=== PATIENT | male | born 1950 | race Caucasian/White ===

== ENCOUNTER 2017-10-21 07:47 | Inpatient (IN) | payer OTHER ==
[~2017-10-21] VITALS: Ht 152.4 cm; Wt 71.7 kg
--- NOTE | 2017-10-21 07:47 | NUR ---
PT BIBA ALS TO BED 8
[2017-10-21 07:54] VITALS: BP 160/79
--- NOTE | 2017-10-21 08:00 | NUR ---
PATIENT BIBA FOR AMS. PER EMS, PATIENT IS USUALLY VERBAL BUT IS NOT TODAY. PATIENT NOT RESPONDING TO VERBAL CUES ONLY PAINFUL STIMULI. UNABLE TO CONFIRM NAME, , AND WHEREABOUTS. PATIENT HAS NOT VISIBLE WOUNDS. BILATERAL BKA, GRISELDA CATH RIGHT SIDE CHEST, BILATERAL INNER THIGH SCARS, SCAR ALONG MID CHEST AND ALONG RIGHT SIDE RIBS. LUNGS CLEAR BL; HR EVEN AND REGULAR; VSS; PATIENT POSITIONED FOR COMFORT; HOB ELEVATED; BEDRAILS UP X2; BED DOWN. ER MD MADE AWARE OF PT STATUS.
[2017-10-21] MEDS ORDERED: NITR0.4T2 SL (08:25)
[2017-10-21] MEDS ORDERED: SYN.1 PO (08:25)
[2017-10-21] MEDS ORDERED: TAMS0.4C96 PO (08:25)
[2017-10-21] MEDS ORDERED: ASPI81CT89 PO (08:25)
[2017-10-21] MEDS ORDERED: QUET100T PO (08:25)
[2017-10-21] MEDS ORDERED: APIX5TAB PO (08:25)
[2017-10-21] MEDS ORDERED: CLON0.1T42 PO (08:25)
[2017-10-21] MEDS ORDERED: FAMO-90 PO (08:25)
[2017-10-21] MEDS ORDERED: DOCU-299 PO (08:25)
[2017-10-21] MEDS ORDERED: VITD1000 PO (08:25)
[2017-10-21] MEDS ORDERED: GABA300C PO (08:25)
[2017-10-21] MEDS ORDERED: CARV3.12 PO (08:25)
[2017-10-21] MEDS ORDERED: FERR324T11 PO (08:25)
[2017-10-21] MEDS ORDERED: ASCO500T93 PO (08:25)
[2017-10-21] MEDS ORDERED: SLIDE SUBQ (08:25)
[2017-10-21] MEDS ORDERED: HYDR100T79 PO (08:25)
[2017-10-21] MEDS ORDERED: ATOR40TA PO (08:25)
[2017-10-21] MEDS ORDERED: BISA-213 RC (08:25)
[2017-10-21 08:41] LABS: BASOPHILS # (AUTO) 0.1 K/uL (0.00-0.22); BASOPHILS % (AUTO) 0.9 % (0.0-2.0); EOSINOPHILS # (AUTO) 0.5 K/uL (0-0.4); EOSINOPHILS % (AUTO) 6.5 % (0.0-4.0); HEMATOCRIT 35.5 % (36-52); HEMOGLOBIN 11.7 g/dL (12.0-18.0); LYMPHOCYTES # (AUTO) 1.9 K/uL (2.0-11.5); LYMPHOCYTES % (AUTO) 23.5 % (20.5-51.1); MEAN CORPUSCULAR HEMOGLOBIN 29 pg (27-31); MEAN CORPUSCULAR HGB CONC 33 g/dL (33-37); MEAN CORPUSCULAR VOLUME 87.4 fL (80-94); MONOCYTES # (AUTO) 0.8 K/uL (0.8-1.0); MONOCYTES % (AUTO) 10.8 % (1.7-9.3); NEUTROPHILS # (AUTO) 4.6 K/uL (1.8-7.7); NEUTROPHILS % (AUTO) 58.3 % (42.2-75.2); PLATELET COUNT (AUTO) 180 K/uL (140-450); RED BLOOD CELL COUNT(AUTO) 4.06 MIL/uL (4.20-6.10); RED CELL DISTRIBUTION WIDTH 18.7 % (11.6-13.7); WHITE BLOOD COUNT (AUTO) 7.9 K/uL (4.8-10.8)
[2017-10-21 08:45] LABS: BILIRUBIN,URINE NEGATIVE (NEGATIVE); BLOOD, URINE 2+ (NEGATIVE); COLOR,URINE YELLOW (YELLOW); LEUKOCYTE ESTERASE ,URINE NEGATIVE (NEGATIVE); NITRITE, URINE NEGATIVE (NEGATIVE); PH,URINE 5.5 (5.0-9.0); UGLUCOSE TRACE (NEGATIVE)
--- NOTE | 2017-10-21 09:23 | NUR ---
Patient appears to be resting comfortably in bed. Vital Signs within normal limits. Respirations even and unlabored.
[2017-10-21 09:25] LABS: APPEARANCE,URINE SLIGHTLY HAZY (CLEAR)
[2017-10-21 09:26] LABS: ANION GAP 15.5 (8-16); CARBON DIOXIDE 25.6 mmol/L (21-32); CHLORIDE 101 mmol/L (98-107); GFR ARICAN-AMERICAN 13 mL/min (>90); GLUCOSE 135 mg/dL (74-106); POTASSIUM 5.1 mmol/L (3.5-5.1); SODIUM SERUM 137 mmol/L (136-145); UREA NITROGEN, BLOOD 59 mg/dL (7-18)
[2017-10-21 09:26] LABS: RBC,URINE 3-10 (FEW) /HPF (0-5); WBC,URINE 0-5 (RARE) /HPF (0-5)
[2017-10-21 09:27] LABS: BARBITURATE, URINE NEG. ng/ml (NEG <=200); BENZODIAZEPINE, URINE NEG. ng/mL (NEG <=200); CANNABINOID, URINE NEG. ng/mL (NEG <=50); COCAINE, URINE NEG. ng/mL (NEG <=300); OPIATE, URINE NEG. ng/mL (NEG <=2000); PHENCYCLIDINE SCREEN,URINE NEG. ng/mL (NEG <=25)
[2017-10-21 09:29] LABS: CREATININE 5.5 mg/dL (0.7-1.3)
[2017-10-21 09:32] LABS: ALBUMIN 2.7 g/dL (3.4-5.0); ASPARTATE AMINOTRANSFERASE 21 U/L (15-37); TOTAL BILIRUBIN 0.4 mg/dL (0.0-1.0)
[2017-10-21 09:49] LABS: ACETONE, SERUM NEGATIVE (NEGATIVE)
[2017-10-21 09:52] LABS: MAGNESIUM 1.7 mg/dL (1.8-2.4); URIC ACID 3.9 mg/dL (2.6-7.2)
[2017-10-21] MEDS ORDERED: NACL 0.9% 1,000 ML IV SCH (10:21)
[2017-10-21] MEDS ORDERED: ONDANSETRON 4 MG/2 ML VIAL IM/IVP PRN (10:25)
[2017-10-21] MEDS ORDERED: HYDROcodone/APAP 7.5/325 MG 1 TAB PO PRN (10:25)
--- NOTE | 2017-10-21 10:30 | NUR ---
Patient appears to be resting comfortably in bed. Vital Signs within normal limits. Respirations even and unlabored.
--- NOTE | 2017-10-21 11:10 | NUR ---
Patient will be admitted to care of DR. HANKS. Admited to TELE. Will go to room 114. Belongings list completed. Report to MST RN.
[2017-10-21 11:15] VITALS: BP 187/76
[2017-10-21] MEDS ORDERED: DEXTROSE 50% 50 ML SYR IVP PRN (11:40)
[2017-10-21] MEDS ORDERED: NITROGLYCERIN 0.4 MG TAB SL PRN (11:45)
[2017-10-21] MEDS ORDERED: cloNIDine 0.1 MG TAB PO PRN (11:45)
[2017-10-21] MEDS ORDERED: BISACODYL 10 MG SUPP RC PRN (11:45)
--- NOTE | 2017-10-21 12:00 | NUR ---
Admitted from ED, with chief complaint of ALOC. PT IS NOW AAOX2. NO SOB NOTED. NO COMPLAINTS MADE. WITH RT CHEST QIUNTON CATH, CLEAN DRY AND INTACT. CHEST CLEAR, ABDOMEN SOFT, BOWEL SOUNDS PRESENT. WITH SANCHEZ DRAINING SMALL AMOUNTS OF SOFY CLEAR URINE. WITH BILATERAL BKA NOTED, BOTH STUMP HEALED. PT IS 67 y/o ,Male, Cooperative,oriented to call light, bed, phone,television, bathroom, smoking policy,visiting hours, procedures, ID bracelet on. Belongings list checked.
[2017-10-21] MEDS: FERROUS GLUCONATE 324 MG TAB PO SCH ×2 (12:43→18:21)
[2017-10-21] MEDS: hydrALAZINE 25 MG TAB PO SCH ×2 (12:43→18:22)
[2017-10-21 13:25] LABS: PROTHROMBIN TIME 11.6 secs (10.8-13.4)
[2017-10-21 14:01] LABS: FREE T4 (FREE THYROXINE) 0.61 ng/dL (0.76-1.46); PHOSPHORUS 5.3 mg/dL (2.5-4.9); THYROID STIMULATING HORMONE 6.33 uIU/mL (0.34-3.74)
[2017-10-21 16:00] VITALS: BP 152/76
[2017-10-21] MEDS: BLOOD GLUCOSE MONITORING 1 DEV DEV FS SCH ×2 (16:30→21:00)
--- NOTE | 2017-10-21 17:01 | NUR ---
SPOKE WITH SHERI FROM ACUTE [facility]YS[facility] (#[phone]) AND NOTIFIED HER THE HD ORDER FROM DR. TESFAYE FOR TOMORROW.
--- NOTE | 2017-10-21 17:15 | NUR ---
PT ASKED IF I COULD TRACK DOWN HIS WRIST WATCH. NO WRIST WATCH NOTED WHEN PT CAME IN, CALLED ED AND TALKED TO MAGNUS AND STATED PT DID NOT COME WITH ANY VALUABLES. SPOKE WITH PEE FROM [facility] AND STATED PT'S WRIST WATCH IS IN THE FACILITY WITH ALL HIS OTHER BELONGINGS. PT NOTIFIED REGARDING THE ISSUE, VERBALIZED UNDERSTANDING.
[2017-10-21] MEDS: INSULIN LISPRO SLIDING SCALE 100 UNITS/ML VIAL SUBQ PRN (18:22)
--- NOTE | 2017-10-21 19:25 | NUR ---
PT AWAKE, NO SOB NOTED. NO COMPLAINTS MADE. ENDORSED TO NEXT SHIFT NURSE FOR CONTINUITY OF CARE.
--- NOTE | 2017-10-21 19:26 | NUR ---
RECEIVED REPORT FROM DAYSDCFT NURSE AT BEDSIDE FOR CONTINUITY OF CARE. PT AAOX2. PT IV NOTED LFA 20G SALINE LOCK. NO SOB NO S/S OF DISTRESS ON RA. PT HAS SANCHEZ IN PLACE. ALSO HAS MEIlda VILLALOBOS CATH. DIALYSIS SCHEDULED TOMORROW. BED LOWERED CALL LIGHT WITHIN REACH WILL CONTINUE TO MONITOR.
[2017-10-21] MEDS: ATORVASTATIN 20 MG TAB PO SCH (20:42)
[2017-10-21] MEDS: GABAPENTIN 300 MG CAP PO SCH (20:43)
[2017-10-21] MEDS: CARVEDILOL 3.125 MG TAB PO SCH (20:43)
[2017-10-21] MEDS: TAMSULOSIN 0.4 MG CAP PO SCH (20:43)
[2017-10-21] MEDS: DOCUSATE SODIUM 100 MG GELCAP PO SCH (20:43)
[2017-10-21] MEDS: FAMOTIDINE 20 MG TAB PO SCH (20:44)
[2017-10-21] MEDS: QUEtiapine FUMARATE 100 MG TAB PO SCH (20:44)
[2017-10-21] MEDS: ASCORBIC ACID 500 MG TAB PO SCH (20:44)
[2017-10-21] MEDS: APIXABAN 2.5 MG TAB PO SCH (20:54)
[2017-10-21 23:16] VITALS: BP 153/52
[2017-10-22] VITALS: BP 140/40
--- NOTE | 2017-10-22 | NUR ---
PT SLEEPING NO SOB NO S/S OF DISTRESS ON RA. WILL CONTINUE TO MONITOR.
[2017-10-22 04:00] VITALS: BP 123/37
[2017-10-22] MEDS: BLOOD GLUCOSE MONITORING 1 DEV DEV FS SCH ×4 (05:30→20:56)
[2017-10-22] MEDS: LEVOTHYROXINE 0.1 MG TAB PO SCH (05:30)
--- NOTE | 2017-10-22 05:31 | NUR ---
PT REFUSED SYNTHROID MORNING MEDICATION. ATTEMPTED 3X AND PT REFUSED WILL CONTINUE TO MONITOR.
[2017-10-22 06:16] LABS: T4 (THYROXINE) 3.4 ug/dL (4.5-12.0)
[2017-10-22 07:15] LABS: BASOPHILS # (AUTO) 0.1 K/uL (0.00-0.22); BASOPHILS % (AUTO) 0.8 % (0.0-2.0); EOSINOPHILS # (AUTO) 0.5 K/uL (0-0.4); EOSINOPHILS % (AUTO) 5.8 % (0.0-4.0); HEMATOCRIT 33.9 % (36-52); HEMOGLOBIN 11.3 g/dL (12.0-18.0); LYMPHOCYTES % (AUTO) 23.3 % (20.5-51.1); MEAN CORPUSCULAR HEMOGLOBIN 29 pg (27-31); MEAN CORPUSCULAR HGB CONC 34 g/dL (33-37); MEAN CORPUSCULAR VOLUME 86.7 fL (80-94); MONOCYTES # (AUTO) 0.8 K/uL (0.8-1.0); NEUTROPHILS # (AUTO) 5.2 K/uL (1.8-7.7); NEUTROPHILS % (AUTO) 61.1 % (42.2-75.2); PLATELET COUNT (AUTO) 184 K/uL (140-450); RED BLOOD CELL COUNT(AUTO) 3.91 MIL/uL (4.20-6.10); RED CELL DISTRIBUTION WIDTH 18.2 % (11.6-13.7); WHITE BLOOD COUNT (AUTO) 8.4 K/uL (4.8-10.8)
--- NOTE | 2017-10-22 07:28 | NUR ---
ENDORSED REPORT TO DAYSHIFT NURSE AT BEDSIDE FOR CONTINUITY OF CARE.
--- NOTE | 2017-10-22 07:29 | NUR ---
RECEIVED REPORT FROM PRINT WASHER NURSE ILEANA AT BEDSIDE FOR CONTINUITY OF CARE. PT IS AAOX2. INTRODUCED SELF AND UPDATED BOARD. PT AWAKE AND CALM. WITH BILATERAL BKA. POPLITEAL PULSES PALPABLE. R HAND WITH 3RD, 4TH, AND 5TH FINGER AMPUTATION. PT WITH SANCHEZ CATHETER IN PLACE. STRONG URINE ODOR. PT ON RA . O2 SAT 97%. NO COUGH. NO SOB. PT DENIES PAIN. NO SIGNS OF DISTRESS. CALL LIGHT WITHIN REACH. BED IN LOW POSITION, WHEELS LOCKED, BED ALARM ON. WILL CONTINUE TO MONITOR.
[2017-10-22 07:55] LABS: ANION GAP 16.7 (8-16); CARBON DIOXIDE 23.8 mmol/L (21-32); POTASSIUM 5.5 mmol/L (3.5-5.1)
[2017-10-22 08:00] VITALS: BP 136/39
[2017-10-22 08:41] LABS: CREATININE 6.2 mg/dL (0.7-1.3)
--- NOTE | 2017-10-22 08:50 | NUR ---
DR. CORDOBA IN ROOM TO SEE PT. REPORTED BUN 77, CREATININE 6.2 AND K 5.5. TO PLAN FOR DIALYSIS TODAY. CALLED SHERI SAID NURSE IS ON THE WAY TO SEE PT.
[2017-10-22] MEDS: VIT-B COMP/VIT-C/FOLIC ACID 1 TAB PO SCH (08:53)
[2017-10-22] MEDS: DOCUSATE SODIUM 100 MG GELCAP PO SCH ×2 (08:53→20:58)
[2017-10-22] MEDS: VITAMIN D 400 IU TAB PO SCH (08:53)
[2017-10-22] MEDS: ASCORBIC ACID 500 MG TAB PO SCH ×2 (08:53→20:59)
[2017-10-22] MEDS: FERROUS GLUCONATE 324 MG TAB PO SCH ×3 (08:53→16:58)
[2017-10-22] MEDS: ASPIRIN 81 MG TAB.CHEW PO SCH (08:54)
[2017-10-22] MEDS: INSULIN LANTUS 100 UNITS/ML 10 ML VIAL SUBQ SCH (09:00)
[2017-10-22] MEDS: CARVEDILOL 3.125 MG TAB PO SCH ×2 (09:00→20:57)
[2017-10-22] MEDS: hydrALAZINE 25 MG TAB PO SCH ×3 (09:00→16:57)
[2017-10-22] MEDS: APIXABAN 2.5 MG TAB PO SCH ×2 (09:01→21:05)
[2017-10-22 09:19] LABS: PHOSPHORUS 6.5 mg/dL (2.5-4.9)
[2017-10-22 09:26] LABS: CHOL/HDL RATIO 2.9 (1-4.5)
--- NOTE | 2017-10-22 10:42 | NUR ---
PATIENT HAS BEEN SCREENED AND CATEGORIZED MODERATE NUTRITION RISK. PATIENT WILL BE SEEN WITHIN 3-5 DAYS OF ADMISSION. 10/24/17 -10/26/[address] Addendum: 10/22/17 at [address] NOTE [facility] REFERRAL RECEIVED ON 10/22/17 FOR UNCONTROLLED DM. NOTE PATIENT GLUCOSE LEVELS WNL AND PATIENT ON CCHO 60 GM DIET. REFERRAL REASON NOT APPLICABLE AND DOES NOT MEET HIGH NUTRITION RISK CRITERIA PER NUTRITION CARE POLICY. PATIENT WILL BE SEEN AND ASSESSED MODERATE NUTRITION RISK STATED ABOVE [address]
--- NOTE | 2017-10-22 11:08 | NUR ---
PT GETTING DIALYSIS IN ROOM WITH HD RN. TECH IN ROOM FOR ECHO. NO SIGNS OF DISTRESS. PT SITTING UP IN BED WATCHING TV. CALL LIGHT WITHIN REACH. WILL CONTINUE TO MONITOR.
[2017-10-22 12:00] VITALS: BP 119/34
--- NOTE | 2017-10-22 12:00 | NUR ---
PT REFUSED INSULIN COVERAGE. BS WAS 184. PT STATED "I DON'T NEED THAT, YOU ALREADY GAVE IT TO ME." EXPLAINED TO PT PURPOSE OF BS CHECK ACHS AND INSULIN COVERAGE. PT STILL REFUSED. NO OTHER COMPLAINTS AT THIS TIME. WILL CONTINUE TO MONITOR.
[2017-10-22 16:00] VITALS: BP 176/49
[2017-10-22] MEDS: CALCIUM ACETATE 667 MG TAB PO SCH (16:57)
--- NOTE | 2017-10-22 17:00 | NUR ---
CHECKED PT'S BS WAS 210. PT REFUSED INSULIN COVERAGE. STATED "I DON'T NEED THAT." AND PULLED ARM AWAY. EDUCATED PT ON BS CONTROL AND MONITORING. PT STILL REFUSED. NO SIGNS OF DISTRESS. CALL LIGHT WITHIN REACH. WILL CONTINUE TO MONITOR.
--- NOTE | 2017-10-22 19:30 | NUR ---
PT MOVED TO ROOM 118. ENDORSED PT TO INVESTMENT ADVISOR NURSE ISSAC AT BEDSIDE FOR CONTINUITY OF CARE. PT IN STABLE CONDITION.
--- NOTE | 2017-10-22 19:31 | NUR ---
RECEIVED BEDSIDE REPORT FROM DAY SHIFT NURSE FREDA RN, PT STABLE, NO DISTRESS NOTED, IV TO L FA 20G, INTACT, PATENT, SL, PT ON ROOM AIR, NO SOB, SANCHEZ CATH IN PLACE DRAINING CLOUDY YELLOW URINE, INITIAL ASSESSMENT DONE, ALL SAFETY PRECAUTION MET, WILL CONTINUE TO MONITOR.
[2017-10-22 20:00] VITALS: BP 170/50
--- NOTE | 2017-10-22 20:30 | NUR ---
NOTIFIED DR. SHAVER REGARDING PT BP 170/50 HR 90, PT HAS NO S/S OF DISTRESS, NO HEADACHE, STATED UNDERSTANDING, WILL MEDICATE PT WITH BP MEDICATION THAT IS DUE AT 2100. LEFT PT RESTING, NO DISTRESS NOTED, CALL LIGHT WITHIN REACH, WILL CONTINUE TO MONITOR.
[2017-10-22] MEDS: TAMSULOSIN 0.4 MG CAP PO SCH (20:58)
[2017-10-22] MEDS: QUEtiapine FUMARATE 100 MG TAB PO SCH (20:58)
[2017-10-22] MEDS: FAMOTIDINE 20 MG TAB PO SCH (20:59)
[2017-10-22] MEDS: ATORVASTATIN 20 MG TAB PO SCH (20:59)
[2017-10-22] MEDS: GABAPENTIN 300 MG CAP PO SCH (20:59)
--- NOTE | 2017-10-22 20:59 | NUR ---
DUE MEDICATION ADMINISTERED, PT TOLERATED WELL, NO DISTRESS NOTED, CALL LIGHT WITHIN REACH, WILL CONTINUE TO MONITOR.
[2017-10-22] MEDS: INSULIN LISPRO SLIDING SCALE 100 UNITS/ML VIAL SUBQ PRN (21:07)
--- NOTE | 2017-10-22 23:27 | NUR ---
CHECKED ON PT, PT SLEEPING, NO DISTRESS NOTED, V/S TAKEN, BP 120/29, HR 86, CALL LIGHT WITHIN REACH, WILL CONTINUE TO MONTIOR. NOTIFIED DR. SHAVER REGARDING PT DIASTOLIC 29, STATED UNDERSTANDING, NO CHANGE IN ORDERS.
[2017-10-23] VITALS: BP 120/29
[2017-10-23 04:00] VITALS: BP 105/29
--- NOTE | 2017-10-23 04:10 | NUR ---
CHECKED ON PT, PT SLEEPING, NO DISTRESS NOTED, CALL LIGHT WITHIN REACH, WILL CONTINUE TO MONITOR.
[2017-10-23] MEDS: LEVOTHYROXINE 0.1 MG TAB PO SCH (06:04)
[2017-10-23] MEDS: BLOOD GLUCOSE MONITORING 1 DEV DEV FS SCH ×4 (06:07→20:36)
--- NOTE | 2017-10-23 06:07 | NUR ---
DUE MEDICATION ADMINISTERED, PT TOLERATED WELL, NO DISTRESS NOTED, CALL LIGHT WITHIN REACH, WILL CONTINUE TO MONITOR.
--- NOTE | 2017-10-23 07:30 | NUR ---
ENDORSED PT TO DAY SHIFT NURSE HERIBERTO RN, PT STABLE, NO DISTRESS NOTED, CALL LIGHT WITHIN REACH.
--- NOTE | 2017-10-23 07:35 | NUR ---
RECEIVED REPORT FROM WINTER SPORTS MANAGER RN. PATIENT IN STABLE CONDITION, AROUSABLE BY VOICE. AAO X2. BILATERAL BKA AND RIGHT HAND 3RD, 4TH, AND 5TH FINGER AMPUTATED. SKIN INTACT. RIGHT UPPER IJ GRISELDA CATH FOR DIALYSIS ACCESS ON , , SAT. IV SITE PATENT AND RUNNING IVF PER MD ORDERS. F/C IN PLACE, DRAINING URINE. HEART RHYTHM IS REGULAR. LUNGS CTA. ALL SAFETY MEASURES IN PLACE, WILL CONTINUE TO MONITOR.
[2017-10-23 07:40] LABS: BASOPHILS # (AUTO) 0.1 K/uL (0.00-0.22); BASOPHILS % (AUTO) 0.6 % (0.0-2.0); EOSINOPHILS # (AUTO) 0.5 K/uL (0-0.4); HEMATOCRIT 32.5 % (36-52); HEMOGLOBIN 10.8 g/dL (12.0-18.0); LYMPHOCYTES # (AUTO) 2.2 K/uL (2.0-11.5); LYMPHOCYTES % (AUTO) 18.6 % (20.5-51.1); MEAN CORPUSCULAR HEMOGLOBIN 29 pg (27-31); MEAN CORPUSCULAR HGB CONC 33 g/dL (33-37); MEAN CORPUSCULAR VOLUME 86.9 fL (80-94); MONOCYTES # (AUTO) 1.2 K/uL (0.8-1.0); MONOCYTES % (AUTO) 10.5 % (1.7-9.3); NEUTROPHILS # (AUTO) 7.8 K/uL (1.8-7.7); NEUTROPHILS % (AUTO) 66.3 % (42.2-75.2); PLATELET COUNT (AUTO) 187 K/uL (140-450); RED BLOOD CELL COUNT(AUTO) 3.74 MIL/uL (4.20-6.10); RED CELL DISTRIBUTION WIDTH 18.6 % (11.6-13.7); WHITE BLOOD COUNT (AUTO) 11.8 K/uL (4.8-10.8)
[2017-10-23 08:00] VITALS: BP 151/53
[2017-10-23 08:26] LABS: CARBON DIOXIDE 25.5 mmol/L (21-32); POTASSIUM 4.5 mmol/L (3.5-5.1)
[2017-10-23 08:29] LABS: CREATININE 4.8 mg/dL (0.7-1.3)
[2017-10-23 08:36] LABS: MAGNESIUM 1.7 mg/dL (1.8-2.4); PHOSPHORUS 4.2 mg/dL (2.5-4.9)
[2017-10-23] MEDS: ASPIRIN 81 MG TAB.CHEW PO SCH (09:00)
[2017-10-23] MEDS: ASCORBIC ACID 500 MG TAB PO SCH ×2 (09:00→20:25)
[2017-10-23] MEDS: DOCUSATE SODIUM 100 MG GELCAP PO SCH ×2 (09:00→20:22)
[2017-10-23] MEDS: FERROUS GLUCONATE 324 MG TAB PO SCH ×3 (09:01→17:00)
[2017-10-23] MEDS: CARVEDILOL 3.125 MG TAB PO SCH ×2 (09:01→20:23)
[2017-10-23] MEDS: VIT-B COMP/VIT-C/FOLIC ACID 1 TAB PO SCH (09:01)
[2017-10-23] MEDS: hydrALAZINE 25 MG TAB PO SCH ×3 (09:01→17:00)
[2017-10-23] MEDS: CALCIUM ACETATE 667 MG TAB PO SCH ×3 (09:01→17:00)
--- NOTE | 2017-10-23 09:01 | NUR ---
SCHEDULED MEDICATIONS GIVEN PER MD ORDERS. PT DENIES PAIN AND DISCOMFORT. WILL CONTINUE TO MONITOR.
[2017-10-23] MEDS: VITAMIN D 400 IU TAB PO SCH (09:02)
[2017-10-23] MEDS: APIXABAN 2.5 MG TAB PO SCH ×2 (09:12→20:36)
[2017-10-23] MEDS: INSULIN LANTUS 100 UNITS/ML 10 ML VIAL SUBQ SCH (09:20)
[2017-10-23 12:00] VITALS: BP 164/71
[2017-10-23] MEDS ORDERED: MAGNESIUM OXIDE 400 MG TAB PO SCH (12:00)
--- NOTE | 2017-10-23 12:01 | NUR ---
PATIENT REFUSING INSULIN FOR BLOOD SUGAR OF 165.
--- NOTE | 2017-10-23 12:47 | NUR ---
FERROUS GLUCONATE WAS NOT AVAILABLE IN PT CASSETTE WHEN OTHER SCHEDULED MEDS WERE GIVEN. WHEN FERROUS GLUCONATE WAS OFFERED TO THE PATIENT NOW, HE REFUSED SAYING "I DON'T WANT ANY MORE MEDICINE NOW".
--- NOTE | 2017-10-23 14:00 | NUR ---
Ui Software Developer Notes: I call [facility] at and I spoke to Mary about Patient's information. Per Mary Patient has been in their facility since 07/03 and has no issues with his medications and has no special equipment. Patient is on a 7 days skilled bed hold and is welcome to return to their facility when he is ready and clear for discharge. I thanked her for the information and I ended the call.
--- NOTE | 2017-10-23 14:55 | NUR ---
BLOOD NOTED IN SANCHEZ CATHETER. DR. CORDOBA AWARE. WILL REMOVE SANCHEZ CATHETER PER MD ORDERS.
--- NOTE | 2017-10-23 15:20 | NUR ---
SANCHEZ CATHETER REMOVED. PATIENT TOLERATED WELL. NO COMPLAINTS OF PAIN OR DISCOMFORT. NO BLEEDING SEEN. CATHETER TIP IS INTACT.
[2017-10-23 16:00] VITALS: BP 144/42
--- NOTE | 2017-10-23 16:44 | NUR ---
PT IS REFUSING SLIDING SCALE INSULIN COVERAGE FOR BLOOD SUGAR OF 164. PT STATES THAT HIS GOAL FOR BLOOD SUGAR CONTROL IS "BELOW 200". EXPLAINED THE BENEFITS OF TIGHT GLYCEMIC CONTROL AND THE RISKS OF HIGHER BLOOD SUGAR. PT CONTINUES TO REFUSE.
--- NOTE | 2017-10-23 17:17 | NUR ---
PT REFUSING SCHEDULED MEDICATIONS. EXPLAINED THE INDICATIONS OF EACH MEDICATION PRESCRIBED BUT PT CONTINUES TO REFUSE.
--- NOTE | 2017-10-23 19:20 | NUR ---
ENDORSED PLAN OF CARE TO CELL ROOM OPERATOR RN. PT IN STABLE CONDITION
--- NOTE | 2017-10-23 19:26 | NUR ---
REPORT RECEIVED FROM AM NURSE AT BEDSIDE. PT IN STABLE CONDITION. AAOX2 PT SEEMS TO BE CONFUSED ASKING ABOUT A COW. BOARD UPDATED AND INTRODUCED SELF TO PT. FULL CODE, NO KNOWN ALLERGIES, CCHO 60 DIET, STANDARD PRECAUTION. IV SITE PATENT AND INTACT L FA 20G SL. PT IS INCONTINENT. HEMODIALYSIS ON SATURDAY, SATURDAY, AND SATURDAY HAS A RIGHT UPPER IJ GRISELDA CATH. SKIN WARM, DRY, AND INTACT WITH NO OPEN WOUNDS. BED LOCKED IN LOW POSITION. CALL MORALES WITHIN REACH.
[2017-10-23 20:00] VITALS: BP 147/39
--- NOTE | 2017-10-23 20:20 | NUR ---
PM MEDS GIVEN. PT TOLERATED WELL. BS 123. NO INSULIN COVERAGE NEEDED. PT TURNED AND REPOSITIONED IN BED.
[2017-10-23] MEDS: TAMSULOSIN 0.4 MG CAP PO SCH (20:23)
[2017-10-23] MEDS: GABAPENTIN 300 MG CAP PO SCH (20:23)
[2017-10-23] MEDS: ATORVASTATIN 20 MG TAB PO SCH (20:23)
[2017-10-23] MEDS: FAMOTIDINE 20 MG TAB PO SCH (20:23)
[2017-10-23] MEDS: QUEtiapine FUMARATE 100 MG TAB PO SCH (20:25)
--- NOTE | 2017-10-23 23:30 | NUR ---
VS TAKEN. PT IN STABLE CONDITION. NO S/S OF DISTRESS NOTED.
[2017-10-24] VITALS: BP 150/30
--- NOTE | 2017-10-24 03:30 | NUR ---
VS TAKEN AND ARE STABLE. NO S/S OF DISTRESS. PT SLEEPING SUPINE. WILL CONTINUE TO MONITOR.
[2017-10-24 04:00] VITALS: BP 148/37
--- NOTE | 2017-10-24 05:10 | NUR ---
RECD. RESTING IN BED, SLEEPING BUT WAKES UP WHEN NAME CALLED, A/OX1. RESPIRATION EVEN AND UNLABORED. GRISELDA CATH AT THE LEFT UPPER CHEST, WITH DRESSING, DRY AND INTACT. IV OF NS AT 60 ML/HR INFUSING, LEFT FOREARM G20. RIGHT 4TH AND 5TH FINGER AMPUTATED, MIDDLE FINGER COVERED WITH DRESSING, DRY AND INTACT. BILATERAL BKA. SAFETY MEASURES ENFORCED. PLAN OF CARE FOR THE SHIFT DISCUSSED. NEEDS REINFORCEMENT. NO APPEARANCE OF PAIN NOTED, 0/10.
[2017-10-24] MEDS: LEVOTHYROXINE 0.1 MG TAB PO SCH ×2 (05:35→05:38)
--- NOTE | 2017-10-24 05:35 | NUR ---
BS 93. NO INSULIN COVERAGE NEEDED. PT REFUSED SYNTHROID.
[2017-10-24] MEDS: BLOOD GLUCOSE MONITORING 1 DEV DEV FS SCH ×4 (05:37→21:42)
--- NOTE | 2017-10-24 07:08 | NUR ---
REPORT GIVEN TO AM NURSE AT BEDSIDE. PT IN STABLE CONDITION.
--- NOTE | 2017-10-24 07:20 | NUR ---
RECEIVED PT REPORT AT BEDSIDE FROM EFFERVESCENT SALTS COMPOUNDER RN. PT IS SLEEPING, AROUSED TO NAME, OX1, APPEARS TO BE LETHARGIC. NO S/S OF ACUTE DISTRESS ON ROOM AIR. IV SITE NOTED TO L FA 20G, PATENT AND INTACT, SL. PT IS INCONTINENT. HEMODIALYSIS SCHEDULED FOR TODAY, RIGHT UPPER IJ GRISELDA CATH NOTED. BED IN LOWEST POSITION. CALL LIGHT WITHIN REACH. WILL CONTINUE O MONITOR.
[2017-10-24 07:23] LABS: BASOPHILS # (AUTO) 0.1 K/uL (0.00-0.22); BASOPHILS % (AUTO) 0.4 % (0.0-2.0); EOSINOPHILS # (AUTO) 0.3 K/uL (0-0.4); EOSINOPHILS % (AUTO) 2.2 % (0.0-4.0); HEMATOCRIT 34.2 % (36-52); HEMOGLOBIN 11.2 g/dL (12.0-18.0); LYMPHOCYTES % (AUTO) 14.8 % (20.5-51.1); MEAN CORPUSCULAR HEMOGLOBIN 28 pg (27-31); MEAN CORPUSCULAR HGB CONC 33 g/dL (33-37); MEAN CORPUSCULAR VOLUME 86.8 fL (80-94); MONOCYTES # (AUTO) 1.4 K/uL (0.8-1.0); MONOCYTES % (AUTO) 10.8 % (1.7-9.3); NEUTROPHILS # (AUTO) 9.5 K/uL (1.8-7.7); NEUTROPHILS % (AUTO) 71.8 % (42.2-75.2); PLATELET COUNT (AUTO) 195 K/uL (140-450); RED BLOOD CELL COUNT(AUTO) 3.94 MIL/uL (4.20-6.10); RED CELL DISTRIBUTION WIDTH 18.8 % (11.6-13.7); WHITE BLOOD COUNT (AUTO) 13.3 K/uL (4.8-10.8)
[2017-10-24 08:00] VITALS: BP 133/53
[2017-10-24 08:19] LABS: CARBON DIOXIDE 24.1 mmol/L (21-32); POTASSIUM 5.1 mmol/L (3.5-5.1)
[2017-10-24 08:20] LABS: MAGNESIUM 1.8 mg/dL (1.8-2.4); PHOSPHORUS 4.4 mg/dL (2.5-4.9)
[2017-10-24] MEDS: CALCIUM ACETATE 667 MG TAB PO SCH ×3 (08:43→16:59)
[2017-10-24 08:46] LABS: CREATININE 6.1 mg/dL (0.7-1.3)
[2017-10-24] MEDS: INSULIN LANTUS 100 UNITS/ML 10 ML VIAL SUBQ SCH (09:00)
[2017-10-24] MEDS: hydrALAZINE 25 MG TAB PO SCH ×3 (09:00→17:00)
[2017-10-24] MEDS: CARVEDILOL 3.125 MG TAB PO SCH ×2 (09:00→21:33)
[2017-10-24] MEDS ORDERED: EPOETIN ALFA 10,000 UNITS/ML VIAL SUBQ SCH (09:00)
[2017-10-24] MEDS: DOCUSATE SODIUM 100 MG GELCAP PO SCH ×2 (09:10→21:31)
[2017-10-24] MEDS: FERROUS GLUCONATE 324 MG TAB PO SCH ×3 (09:10→16:59)
[2017-10-24] MEDS: ASCORBIC ACID 500 MG TAB PO SCH ×2 (09:10→21:31)
[2017-10-24] MEDS: VIT-B COMP/VIT-C/FOLIC ACID 1 TAB PO SCH (09:10)
[2017-10-24] MEDS: ASPIRIN 81 MG TAB.CHEW PO SCH (09:10)
[2017-10-24] MEDS: VITAMIN D 400 IU TAB PO SCH (09:11)
[2017-10-24] MEDS: APIXABAN 2.5 MG TAB PO SCH ×2 (09:20→22:03)
--- NOTE | 2017-10-24 09:25 | NUR ---
LANTUS NOT GIVEN BECAUSE PT REFUSED TO EAT BREAKFAST. BLOOD GLUCOSE 102.
--- NOTE | 2017-10-24 09:27 | NUR ---
2 VIALS OF 5000 UNITS HEPARIN GIVEN TO DIALYSIS NURSE TO BE ADMINISTERED FOR DIALYSIS.
--- NOTE | 2017-10-24 12:20 | NUR ---
PT FINISHED DIALYSIS, PT IS NOW MORE AWAKE. PT IS EATING BY HIMSELF, MINIMAL ASSISTANCE PROVIDED.
--- NOTE | 2017-10-24 12:40 | NUR ---
PT WAS CLEANED, BED LINEN CHANGED, BLOODY URINE NOTED. ALSO NOTED YELLOW DISCHARGE WITH FOUL ODOR FROM RIGHT MIDDLE FINGER CRACKED SCAB. PT STATED THE FINGER WAS AMPUTATED 10 MONTHS AGO AND HE DOES NOT REMEMBER WHICH HOSP WAS THE PROCEDURE DONE. REPORTED FINDINGS TO DR CORDOBA. WOUND PIC TAKEN. CULTURE SWAB DONE.
--- NOTE | 2017-10-24 14:49 | NUR ---
REASON FOR EVALUATION: CHANGE OF SKIN CONDITION TO RIGHT HAND AND LOW MIRTA SCALE SKIN ASSESSMENT DONE WITH PRIMARY RN WITH THIS 67 Y/O MALE PT ADMITTED FROM [facility] TO [facility] WITH INITIAL DX OF ALOC. PAST MEDICAL HX INCLUDES HTN, DM, ESRD ON HD. ALL ABOVE INFORMATION OBTAINED FROM ADMISSION H&P. PT HAS HX OF BLE BKA, AND RIGHT HAND PARTIAL AMPUTATION WITH ONLY RIGHT THUMB AND INDEX FINGER REMAIN AND GOOD AROM. PT IS AAX3. PT IS RECEIVE HD AT BED SIDE. PLAN OF CARE DISCUSS WITH PRIMARY RN AND PT. PT VERBALIZES UNDERSTAND. INTEGUMENTARY: -BILATERAL BKA HEALED STUMPS. -GRISELDA CATH RIGHT SIDE CHEST -MULTIPLE HEALED SCARS TO BILATERAL INNER THIGH, MID CHEST AND RIGHT LATERAL CHEST. -S/P RIGHT HAND PARTIAL AMPUTATION SURGICAL WOUND (NO 3RD, 4TH AND 5TH FINGERS OBSERVED) , MULTIPLE BROWN SCABS WITH LARGEST TO OLD 3RD FINGER POSITION, 2X2CM, CRACKED LESION SCAB, SMALL AMOUNT PURULENT DRAINAGE WITH MILD ODOR. AGUSTO-WOUND SKIN INTACT, SWELLING WITH DARKER BROWN PIGMENTATION, PT. HAS SENSATION MILD PAIN WHEN TOUCHED. RECOMMENDATIONS: -X-RAY OR BONE SCAN TO RIGHT HAND -WOUND CULTURE -CLEANSE S/P SURGICAL WOUND TO RIGHT HAND WITH NS. PAT DRY, APPLY THERAHONEY GEL, COVER WITH NON-ADHESIVE DRY DRESSING QD AND PRN IF SOILING. -OFFLOAD BILATERAL HEELS BY PLACING PILLOWS UNDER CALVES UNLESS OTHERWISE CONTRAINDICATED -PRESSURE REDISTRIBUTION SURFACE THERAPY -TURN AND REPOSITION Q2H, OFFLOAD SACRALCOCCYX BY TURNING RIGHT AND LEFT -CONTINUE TO FOLLOW RD RECOMMENDATIONS ALL ABOVE RECOMMENDATIONS DISCUSSED WITH PRIMARY RN AND DR. CORDOBA WILL FOLLOW UP PT Q7-10 DAYS. PLEASE CONTACT WOUND CARE NURSE FOR ANY QUESTION AND CHANGE OF WOUND CONDITION.
[2017-10-24 16:00] VITALS: BP 144/57
[2017-10-24] MEDS: THERAHONEY WOUND DRESSING TP SCH (16:00)
--- NOTE | 2017-10-24 16:00 | NUR ---
RINSED WOUND ON RIGHT MID FINGER WITH NS, PATTED DRY. SCAB IS PARTIALLY OPEN. APPLIED THERAHONEY, ADAPTIC DRESSING AND COVERED WITH COMPOSITE DRESSING.
--- NOTE | 2017-10-24 16:10 | NUR ---
PT WAS STRAIGHT CATHED, URINE SENT TO LAB.
--- NOTE | 2017-10-24 16:30 | NUR ---
VITALS TAKEN, TEMP 102.0, REPORTED TO DR CORDOBA. WILL ADMINISTER TYLENOL PRN ORDER.
--- NOTE | 2017-10-24 16:55 | NUR ---
TYLENOL GIVEN, ICE PACK APPLIED TO THE BACK OF THE NECK.
[2017-10-24] MEDS: ACETAMINOPHEN 325 MG TAB PO PRN (16:57)
[2017-10-24] MEDS: INSULIN LISPRO SLIDING SCALE 100 UNITS/ML VIAL SUBQ PRN (17:09)
--- NOTE | 2017-10-24 19:25 | NUR ---
REPORT GIVEN TO LEATHER STRETCHER RN. PT IN STABLE CONDITION.
[2017-10-24 20:00] VITALS: BP 135/58
--- NOTE | 2017-10-24 20:00 | NUR ---
Patient's Plan of Care was discussed and reviewed with SUPERVISOR POULTRY PROCESSING: MADDIE HOOVER
[2017-10-24] MEDS: CLINDAMYCIN PHOS 600MG/D5W PM 50 ML IV SCH (21:02)
--- NOTE | 2017-10-24 21:04 | NUR ---
IV ANB STARTED. PT TOLERATING WELL. WILL CONTINUE TO MONITOR.
[2017-10-24] MEDS: QUEtiapine FUMARATE 100 MG TAB PO SCH (21:31)
[2017-10-24] MEDS: TAMSULOSIN 0.4 MG CAP PO SCH (21:32)
[2017-10-24] MEDS: ATORVASTATIN 20 MG TAB PO SCH (21:32)
[2017-10-24] MEDS: GABAPENTIN 300 MG CAP PO SCH (21:32)
[2017-10-24] MEDS: FAMOTIDINE 20 MG TAB PO SCH (21:33)
--- NOTE | 2017-10-24 21:33 | NUR ---
DUE PO MEDICATIONS GIVEN, TOLERATED WELL.
--- NOTE | 2017-10-25 | NUR ---
SLEEPING COMFORTABLY, NO APPEARANCE OF PAIN NOTED.
[2017-10-25] MEDS: CLINDAMYCIN PHOS 600MG/D5W PM 50 ML IV SCH (04:24)
--- NOTE | 2017-10-25 06:00 | NUR ---
STILL SLEEPING COMFORTABLY.
[2017-10-25] MEDS: LEVOTHYROXINE 0.1 MG TAB PO SCH (06:27)
[2017-10-25] MEDS: BLOOD GLUCOSE MONITORING 1 DEV DEV FS SCH ×4 (06:29→21:16)
[2017-10-25] MEDS: INSULIN LISPRO SLIDING SCALE 100 UNITS/ML VIAL SUBQ PRN (06:33)
--- NOTE | 2017-10-25 07:05 | NUR ---
ABLE TO SLEEP WELL. CONDITION REMAIN STABLE. ENDORSED TO AM NURSE FOR CONTINUITY OF CARE.
[2017-10-25 07:20] LABS: HEMATOCRIT 32.4 % (36-52); HEMOGLOBIN 10.8 g/dL (12.0-18.0); MEAN CORPUSCULAR HEMOGLOBIN 29 pg (27-31); MEAN CORPUSCULAR HGB CONC 33 g/dL (33-37); MEAN CORPUSCULAR VOLUME 86.1 fL (80-94); PLATELET COUNT (AUTO) 198 K/uL (140-450); RED BLOOD CELL COUNT(AUTO) 3.77 MIL/uL (4.20-6.10); RED CELL DISTRIBUTION WIDTH 18.6 % (11.6-13.7); WHITE BLOOD COUNT (AUTO) 16.3 K/uL (4.8-10.8)
--- NOTE | 2017-10-25 07:30 | NUR ---
RECEIVED PT REPORT AT BEDSIDE FROM CLINICAL REHABILITATION AIDE NURSE. PT IS SLEEPING, AROUSED TO NAME, OX1, APPEARS TO BE DROWSY. NO S/S OF ACUTE DISTRESS ON ROOM AIR. IV SITE NOTED TO L FA 20G, PATENT AND INTACT, TKO. PT IS INCONTINENT. RIGHT UPPER IJ GRISELDA CATH NOTED. BED IN LOWEST POSITION. CALL LIGHT WITHIN REACH. WILL CONTINUE O MONITOR.
[2017-10-25 07:40] LABS: LYMPHOCYTES % (MANUAL) 10 % (20-46); MONOCYTES % (MANUAL) 7 % (5-12)
[2017-10-25] MEDS ORDERED: VANCOMYCIN PER PHARMACY MC PRN (07:45)
[2017-10-25 07:46] LABS: ANION GAP 13.8 (8-16); CARBON DIOXIDE 23.6 mmol/L (21-32); POTASSIUM 4.4 mmol/L (3.5-5.1)
[2017-10-25 07:50] LABS: CREATININE 5.1 mg/dL (0.7-1.3)
[2017-10-25 08:00] VITALS: BP 123/44
[2017-10-25] MEDS: FERROUS GLUCONATE 324 MG TAB PO SCH ×3 (08:22→17:29)
[2017-10-25] MEDS: CALCIUM ACETATE 667 MG TAB PO SCH ×3 (08:22→17:29)
[2017-10-25] MEDS: VIT-B COMP/VIT-C/FOLIC ACID 1 TAB PO SCH (08:23)
[2017-10-25] MEDS: ASCORBIC ACID 500 MG TAB PO SCH ×2 (08:23→21:16)
[2017-10-25] MEDS: DOCUSATE SODIUM 100 MG GELCAP PO SCH ×2 (08:23→21:17)
[2017-10-25] MEDS: ASPIRIN 81 MG TAB.CHEW PO SCH (08:23)
[2017-10-25] MEDS: VITAMIN D 400 IU TAB PO SCH (08:23)
[2017-10-25] MEDS: CARVEDILOL 3.125 MG TAB PO SCH ×2 (08:24→21:16)
[2017-10-25] MEDS: hydrALAZINE 25 MG TAB PO SCH ×3 (08:25→17:00)
[2017-10-25] MEDS: INSULIN LANTUS 100 UNITS/ML 10 ML VIAL SUBQ SCH (08:39)
[2017-10-25] MEDS: APIXABAN 2.5 MG TAB PO SCH ×2 (08:39→21:23)
--- NOTE | 2017-10-25 08:59 | NUR ---
CM NOTE PATIENT HAS SECONDARY IEHP. PER IEHP DARRELL PONCE FOR [facility] AUTH# [id number]
[2017-10-25] MEDS ORDERED: VANCOMYCIN 1GM/DEXT 5% PREMIX 200 ML IV SCH (09:00)
--- NOTE | 2017-10-25 12:20 | NUR ---
BP 130/44 HR 79. APRESOLINE GIVEN SCHEDULED.
--- NOTE | 2017-10-25 12:45 | NUR ---
TEMP 99.8 TEMPORAL, TYLENOL GIVEN.
[2017-10-25] MEDS: ACETAMINOPHEN 325 MG TAB PO PRN (12:47)
--- NOTE | 2017-10-25 13:10 | NUR ---
RIGHT FINGER WOUND DRESSING CHANGED. RINSED WITH NS, PATTED DRY, APPLIED THERAHONEY AND ADAPTIC, COVERED WITH COMPOSITE DRESSING.
[2017-10-25] MEDS: THERAHONEY WOUND DRESSING TP SCH (13:22)
[2017-10-25 16:00] VITALS: BP 107/36
[2017-10-25] MEDS ORDERED: metFORMIN 500 MG TAB PO SCH (17:00)
--- NOTE | 2017-10-25 17:05 | NUR ---
TOLD DIALYSIS NURSE NÉSTOR THAT [facility] HAS DIALYSIS ORDER TOMORROW. NÉSTOR CONTACTED SHERI AND SAID SHERI IS ALREADY AWARE.
--- NOTE | 2017-10-25 19:18 | NUR ---
REPORT GIVEN TO LINUX DEVELOPER RN. PT IN STABLE CONDITION.
--- NOTE | 2017-10-25 19:19 | NUR ---
REPORT RECEIVED FROM AM NURSE. PT IN STABLE CONDITION. AAOX2. BOARD UPDATED AND INTRODUCED SELF TO PT. IV SITE L FA 22G RUNNING NS TKO. PT HAS BILATERAL BKA AND RIGHT 3RD 4TH AND 5TH FINGERS AMPUTATED. SKIN WARM, DRY, AND NOT INTACT DUE TO AN INFECTION ON THE 3RD FINGER. BED LOCKED IN LOW POSITION. CALL MORALES WITHIN REACH.
--- NOTE | 2017-10-25 21:15 | NUR ---
PM MEDS GIVEN. PT TOLERATED WELL. BS 137. NO INSULIN COVERAGE NEEDED.
[2017-10-25] MEDS: TAMSULOSIN 0.4 MG CAP PO SCH (21:16)
[2017-10-25] MEDS: ATORVASTATIN 20 MG TAB PO SCH (21:16)
[2017-10-25] MEDS: FAMOTIDINE 20 MG TAB PO SCH (21:17)
[2017-10-25] MEDS: GABAPENTIN 300 MG CAP PO SCH (21:17)
--- NOTE | 2017-10-25 23:30 | NUR ---
PT VS STABLE. NO S/S OF DISTRESS.
[2017-10-26] VITALS: BP 143/44
--- NOTE | 2017-10-26 01:00 | NUR ---
CHECKED PT DRESSING. DRY AND INTACT. NO DRESSING CHANGE.
--- NOTE | 2017-10-26 04:00 | NUR ---
PT SLEEPING COMFORTABLY. SLEEPING BUT AROUSABLE. WILL CONTINUE TO MONITOR.
--- NOTE | 2017-10-26 05:40 | NUR ---
SYNTHROID AND GLUCOTROL GIVEN. PT TOLERATED WELL. BS 109. NO INSULIN COVERAGE NEEDED.
[2017-10-26] MEDS: LEVOTHYROXINE 0.1 MG TAB PO SCH (05:42)
[2017-10-26] MEDS: glipiZIDE 5 MG TAB PO SCH (05:43)
[2017-10-26] MEDS: BLOOD GLUCOSE MONITORING 1 DEV DEV FS SCH ×4 (05:44→21:18)
--- NOTE | 2017-10-26 07:05 | NUR ---
REPORT GIVEN TO AM NURSE AT BEDSIDE. PT IN STABLE CONDITION.
--- NOTE | 2017-10-26 07:05 | NUR ---
RECEIVED PT FROM RUBBER TIRE AND TUBES SUPERVISOR CELESTINE BETANCOURT, PT IN BED AWAKE, V/S TAKEN ALL WITHIN PTS BASELINE, DIALYSIS NURSE ON UNIT, ORDER FOR DIALYSIS AND CURRENT LABS PRINTED AND IN CHART. RIGHT SUBCLAVIAN GRISELDA CATH DRESSING INTACT. L FA 20 G DRESSING INTACT, PATENT. PTS BED IN LOWEST POSITION, WHEN ASKED IF IN PAIN PT DID NOT RESPOND. NO SIGNS OF ACUTE DISTRESS, UPDATED BOARD EXPLAINED PLAN OF CARE. WILL CONTINUE TO MONITOR.
[2017-10-26 07:15] LABS: BASOPHILS # (AUTO) 0.1 K/uL (0.00-0.22); BASOPHILS % (AUTO) 0.5 % (0.0-2.0); EOSINOPHILS # (AUTO) 0.2 K/uL (0-0.4); EOSINOPHILS % (AUTO) 1.6 % (0.0-4.0); HEMATOCRIT 30.1 % (36-52); LYMPHOCYTES # (AUTO) 1.6 K/uL (2.0-11.5); LYMPHOCYTES % (AUTO) 11.5 % (20.5-51.1); MEAN CORPUSCULAR HEMOGLOBIN 29 pg (27-31); MEAN CORPUSCULAR HGB CONC 33 g/dL (33-37); MONOCYTES # (AUTO) 1.5 K/uL (0.8-1.0); MONOCYTES % (AUTO) 11.1 % (1.7-9.3); NEUTROPHILS # (AUTO) 10.4 K/uL (1.8-7.7); NEUTROPHILS % (AUTO) 75.3 % (42.2-75.2); PLATELET COUNT (AUTO) 210 K/uL (140-450); RED BLOOD CELL COUNT(AUTO) 3.47 MIL/uL (4.20-6.10); RED CELL DISTRIBUTION WIDTH 18.5 % (11.6-13.7); WHITE BLOOD COUNT (AUTO) 13.9 K/uL (4.8-10.8)
[2017-10-26 07:26] LABS: ANION GAP 13.5 (8-16); CARBON DIOXIDE 22.4 mmol/L (21-32); POTASSIUM 4.9 mmol/L (3.5-5.1)
[2017-10-26 07:39] LABS: CREATININE 6.4 mg/dL (0.7-1.3)
--- NOTE | 2017-10-26 07:50 | NUR ---
RECEIVED CALL FROM LAB, SPOKE WITH TONYA, BUN 68, CREATININE 6.4. PT GETTING DIALYSIS TODAY. PAGED DR CORDOBA.
[2017-10-26 07:51] LABS: MAGNESIUM 1.9 mg/dL (1.8-2.4); PHOSPHORUS 3.9 mg/dL (2.5-4.9)
[2017-10-26 08:00] VITALS: BP 135/60
[2017-10-26] MEDS: hydrALAZINE 25 MG TAB PO SCH ×3 (08:02→17:00)
[2017-10-26] MEDS: CARVEDILOL 3.125 MG TAB PO SCH ×2 (08:03→21:19)
[2017-10-26] MEDS: VITAMIN D 400 IU TAB PO SCH (08:42)
[2017-10-26] MEDS: DOCUSATE SODIUM 100 MG GELCAP PO SCH ×2 (08:43→21:19)
[2017-10-26] MEDS: VIT-B COMP/VIT-C/FOLIC ACID 1 TAB PO SCH (08:43)
[2017-10-26] MEDS: ASPIRIN 81 MG TAB.CHEW PO SCH (08:44)
[2017-10-26] MEDS: FERROUS GLUCONATE 324 MG TAB PO SCH ×4 (08:44→17:00)
[2017-10-26] MEDS: CALCIUM ACETATE 667 MG TAB PO SCH ×3 (08:44→17:00)
[2017-10-26] MEDS: ASCORBIC ACID 500 MG TAB PO SCH ×2 (08:44→21:20)
[2017-10-26] MEDS: INSULIN LANTUS 100 UNITS/ML 10 ML VIAL SUBQ SCH (08:48)
[2017-10-26] MEDS: APIXABAN 2.5 MG TAB PO SCH ×2 (08:55→21:22)
--- NOTE | 2017-10-26 08:56 | NUR ---
PT REFUSED ELIQUIS, WILL HOLD.
--- NOTE | 2017-10-26 09:04 | NUR ---
10/26/17 RD INITIAL ASSESSMENT COMPLETED PLEASE REFER TO NUTRITION ASSESSMENT UNDER CARE ACTIVITY FOR ESTIMATED NEEDS. RECOMMENDATIONS: 1. CONTINUE MECHANICAL SOFT, RENAL, CCHO DIET TOLERATED. 2. RD WILL FOLLOW UP IN 3-5 DAYS; MODERATE RISK. NURY RUSSO RD, [facility]
--- NOTE | 2017-10-26 11:35 | NUR ---
LAB CALLED SPOKE WITH TONYA, PT HAS MDRO IN URINE, DR RUDOLPH AWARE. PLACE PT ON CONTACT ISOLATION PRECAUTIONS.
--- NOTE | 2017-10-26 12:50 | NUR ---
PT REFUSED MEDICATIONS STATED "NO, NO, NO", WHEN ASKED IF WANTED DUE MEDICATIONS.
[2017-10-26] MEDS: THERAHONEY WOUND DRESSING TP SCH (12:57)
--- NOTE | 2017-10-26 13:27 | NUR ---
PT PULLED OUT IV IN L FA, CATH INACT.
--- NOTE | 2017-10-26 13:46 | NUR ---
STARTED NEW IV IN L LAZARO 22 G.
--- NOTE | 2017-10-26 14:54 | NUR ---
PT PULLED PUT IV IN LEFT HAND STARTED NEW IV IN LEFT HAND 22 G. APPLIED GAUZE AND MITTEN.
[2017-10-26 16:00] VITALS: BP 110/40
[2017-10-26] MEDS ORDERED: VANCOMYCIN 1GM/DEXT 5% PREMIX 200 ML IV SCH (16:00)
--- NOTE | 2017-10-26 16:06 | NUR ---
PT RESTING IN BED SLEEPING NO SIGNS OF DISTRESS, CALL LIGHT WITHIN REACH, WILL CONTINUE TO MONITOR.
--- NOTE | 2017-10-26 17:06 | NUR ---
PT STATED "PLEASE NO MORE PLEASE NO", WHEN ASKED IF CAN GIVE MEDICINE. WILL HOLD DUE PO MEDICATIONS.
[2017-10-26] MEDS: ACETAMINOPHEN 325 MG TAB PO PRN (17:50)
--- NOTE | 2017-10-26 19:05 | NUR ---
BEDSIDE REPORT GIVEN TO RN DEYANIRA, PT STABLE.
--- NOTE | 2017-10-26 19:06 | NUR ---
RECEIVED REPORT FROM DAY SHIFT RN FOR CONTINUITY OF CARE. PT IS A/OX1, ON ROOM AIR. RESPIRATIONS EVEN AND UNLABORED AT THE MOMENT. PT HAS A BILATERAL BKA AND RIGHT 3RD-5TH FINGER AMPUTATED. PT HAS 22G IV TO LEFT HAND, ASYMPTOMATIC, INTACT AND PATENT. PT ALSO HAS A GRISELDA CATHETER FOR DIALYSIS TO RIGHT CHEST. VITAL SIGNS WITHIN NORMAL LIMITS. PT STABLE, NO SIGNS OF DISTRESS NOTED AT THIS TIME. BED IN LOWEST POSITION, BED ALARM ON. CALL LIGHT WITHIN REACH, WILL CONTINUE TO MONITOR.
[2017-10-26] MEDS: INSULIN LISPRO SLIDING SCALE 100 UNITS/ML VIAL SUBQ PRN ×2 (19:22→21:23)
[2017-10-26] MEDS: TAMSULOSIN 0.4 MG CAP PO SCH (21:19)
[2017-10-26] MEDS: GABAPENTIN 300 MG CAP PO SCH (21:20)
[2017-10-26] MEDS: FAMOTIDINE 20 MG TAB PO SCH (21:20)
[2017-10-26] MEDS: ATORVASTATIN 20 MG TAB PO SCH (21:21)
--- NOTE | 2017-10-26 21:25 | NUR ---
ADMINISTERED SCHEDULED MEDICATIONS AND 2 UNITS OF HUMALOG INSULIN FOR BS 186, PT TOLERATED WELL.
[2017-10-27] VITALS: BP 126/57
--- NOTE | 2017-10-27 | NUR ---
VITAL SIGNS WITHIN NORMAL LIMITS. PT STABLE, NO SIGNS OF DISTRESS NOTED AT THIS TIME. BED IN LOWEST POSITION, BED ALARM ON. CALL LIGHT WITHIN REACH, WILL CONTINUE TO MONITOR.
--- NOTE | 2017-10-27 02:28 | NUR ---
PT RESTING COMFORTABLY. PT STABLE, NO SIGNS OF DISTRESS NOTED AT THIS TIME. BED IN LOWEST POSITION, BED ALARM ON. CALL LIGHT WITHIN REACH, WILL CONTINUE TO MONITOR.
--- NOTE | 2017-10-27 04:27 | NUR ---
PT STABLE, NO SIGNS OF DISTRESS NOTED AT THIS TIME. BED IN LOWEST POSITION, BED ALARM ON. CALL LIGHT WITHIN REACH, WILL CONTINUE TO MONITOR.
[2017-10-27] MEDS: LEVOTHYROXINE 0.1 MG TAB PO SCH (06:04)
[2017-10-27] MEDS: glipiZIDE 5 MG TAB PO SCH (06:05)
[2017-10-27] MEDS: INSULIN LISPRO SLIDING SCALE 100 UNITS/ML VIAL SUBQ PRN ×2 (06:16→12:22)
[2017-10-27] MEDS: BLOOD GLUCOSE MONITORING 1 DEV DEV FS SCH ×2 (06:16→12:21)
[2017-10-27 06:36] LABS: BASOPHILS % (AUTO) 0.2 % (0.0-2.0); EOSINOPHILS # (AUTO) 0.1 K/uL (0-0.4); EOSINOPHILS % (AUTO) 0.4 % (0.0-4.0); HEMATOCRIT 29.3 % (36-52); HEMOGLOBIN 9.8 g/dL (12.0-18.0); LYMPHOCYTES # (AUTO) 0.9 K/uL (2.0-11.5); LYMPHOCYTES % (AUTO) 6.9 % (20.5-51.1); MEAN CORPUSCULAR HEMOGLOBIN 29 pg (27-31); MEAN CORPUSCULAR HGB CONC 33 g/dL (33-37); MEAN CORPUSCULAR VOLUME 86.8 fL (80-94); MONOCYTES # (AUTO) 1.4 K/uL (0.8-1.0); MONOCYTES % (AUTO) 10.6 % (1.7-9.3); NEUTROPHILS # (AUTO) 10.6 K/uL (1.8-7.7); NEUTROPHILS % (AUTO) 81.9 % (42.2-75.2); PLATELET COUNT (AUTO) 221 K/uL (140-450); RED BLOOD CELL COUNT(AUTO) 3.37 MIL/uL (4.20-6.10); RED CELL DISTRIBUTION WIDTH 18.8 % (11.6-13.7)
[2017-10-27 07:03] LABS: ANION GAP 11.2 (8-16); MAGNESIUM 1.9 mg/dL (1.8-2.4); PHOSPHORUS 2.3 mg/dL (2.5-4.9); POTASSIUM 4.2 mmol/L (3.5-5.1)
--- NOTE | 2017-10-27 07:23 | NUR ---
ENDORSED PT TO DAY SHIFT RN FOR CONTINUITY OF CARE. PT IN STABLE CONDITION.
[2017-10-27 07:24] LABS: CREATININE 4.9 mg/dL (0.7-1.3)
--- NOTE | 2017-10-27 07:25 | NUR ---
RECEIVED BEDSIDE REPORT FROM SUPERVISOR WHITE SUGAR NURSE. PATIENT IS SLEEPING. NO SIGNS OF DISTRESS ON ROOM AIR. HE IS BED BOUND, BKA BILATERAL. R HAND FINGERS 3,4,5 AMPUTATION, DRESSING IS CLEAN, DRY AND INTACT. PATIENT IS INCONTINENT LAST . MED SURGE. GRISELDA CATH ON R CHEST, CLEAN, DRY AND INTACT. IV ON L HAND 22G INFUSING NS AT 5 TKO. CLEAN, DRY AND INTACT. MITTEN ON L HAND BECAUSE PATIENT KEEPS BITING IT OFF. BED IN LOW POSITION. CALL LIGHT WITHIN REACH. WILL CONTINUE TO MONITOR
[2017-10-27 08:00] VITALS: BP 125/35
[2017-10-27] MEDS: CALCIUM ACETATE 667 MG TAB PO SCH ×2 (08:00→12:00)
[2017-10-27] MEDS ORDERED: Vancomycin Per Pharmacy MC (09:00)
[2017-10-27] MEDS ORDERED: LACT10CA1 PO (09:00)
--- NOTE | 2017-10-27 09:00 | NUR ---
PATIENT ATTEMPTING TO EAT BREAKFAST. SHE SAID SHE DOESNT REALLY HAVE AN APPETITE. LEFT TRAY IN CASE SHE WANTS TO EAT LATER. WILL CONTINUE TO MONITOR THE PATIENT Addendum: 10/27/17 at 1107 by Lisy Harmon RN WRONG PATIENT
[2017-10-27] MEDS ORDERED: ROC1PM IV (09:05)
--- NOTE | 2017-10-27 09:29 | NUR ---
CALLED [facility], SPOKE TO BORIS (SOCKET WELDER HELPER) SHE STATED WILL CALL BACK FOR A ROOM.
[2017-10-27 10:00] VITALS: BP 113/50
[2017-10-27] MEDS: DOCUSATE SODIUM 100 MG GELCAP PO SCH (10:00)
[2017-10-27] MEDS: VITAMIN D 400 IU TAB PO SCH (10:01)
[2017-10-27] MEDS: ASPIRIN 81 MG TAB.CHEW PO SCH (10:01)
[2017-10-27] MEDS: hydrALAZINE 25 MG TAB PO SCH ×2 (10:01→13:00)
[2017-10-27] MEDS: ASCORBIC ACID 500 MG TAB PO SCH (10:01)
[2017-10-27] MEDS: VIT-B COMP/VIT-C/FOLIC ACID 1 TAB PO SCH (10:01)
[2017-10-27] MEDS: FERROUS GLUCONATE 324 MG TAB PO SCH ×2 (10:02→13:00)
--- NOTE | 2017-10-27 10:05 | NUR ---
ADMINISTERED MEDS. CRUSHED MEDS AND FED IT W SUGAR FREE JELLO. PATIENT TOLERATED WELL. WILL CONTINUE TO MONITOR THE PATIENT.
[2017-10-27] MEDS: INSULIN LANTUS 100 UNITS/ML 10 ML VIAL SUBQ SCH (10:18)
[2017-10-27 12:00] VITALS: BP 110/67
[2017-10-27] MEDS: CARVEDILOL 3.125 MG TAB PO SCH (12:20)
[2017-10-27] MEDS: APIXABAN 2.5 MG TAB PO SCH (12:20)
--- NOTE | 2017-10-27 12:28 | NUR ---
ADMINISTERED MEDS. PATIENT TOLERATED WELL. BROTHER AT BEDSIDE FEEDING THE PATIENT. PATIENT TOLERATING WELL. WILL CONTINUE TO MONITOR THE PATIENT.
[2017-10-27] MEDS: THERAHONEY WOUND DRESSING TP SCH (13:00)
[2017-10-27 14:03] VITALS: BP 103/57
[2017-10-27] MEDS: ACETAMINOPHEN 325 MG TAB PO PRN (14:12)
--- NOTE | 2017-10-27 14:24 | NUR ---
ADMINISTERED MEDS. PATIENT TOLERATED WELL. CLEANSED R HAND W NS, PUT THERAHONEY AND WRAPPED THE WOUND. MILD ODOR. WOUND IS CLEAN, DRY AND INTACT. PICTURE TAKEN. WILL CONTINUE TO MONITOR THE PATIENT
--- NOTE | 2017-10-27 15:29 | NUR ---
EDUCATED PATIENT AND BROTHER DONNIE ON DISEASE PROCESS, ABN S/SX, HOW TO CARE FOR WOUNDS, FOLLOW UP W PCP, EDUCATED ON MEDS AND GAVE PRESCRIPTIONS, PATIENT AND FAMILY VERBALIZED UNDERSTANDING. BROTHER DONNIE SIGNED PAPERWORK. BED IN LOW POSITION. CALL LIGHT WITHIN REACH. TOOK A PHOTO OF WOUND, IV WAS REMOVED, IV TIP IS INTACT. WILL REMOVE ID BANDS WHEN HE IS DISCHARGED.
--- NOTE | 2017-10-27 16:15 | NUR ---
PATIENT PICKED UP BY TRANSPORT. REPORT GIVEN. PATIENT LEFT IN STABLE CONDITION. ID BANDS WERE REMOVED.
--- NOTE | 2017-10-28 19:00 | NUR ---
PT TEMP 100.6. MEDICATED ACCORDING TO [place] WITH TYLENOL FOR TEMP ABOVE 100.4. Addendum: 10/29/17 at 0423 by Vilma Ragsdale RN NOTE FOR 10/26/17 AT [id number]
== END 2017-10-27 16:15 | DRG 871 ==
LOC: MED 07:47 → EDBEDREQTM 10:14 → EDBEDREQSVC 10:14 → MTU 10:25
PROVIDERS: ADMIT General Practice; ATTEND General Practice
PROC: 5A1D70Z Performance of Urinary Filtration, Intermittent, Less than 6 Hours Per Day (ICD-10-PCS; 2017-10-22)
PROC: 5A1D70Z Performance of Urinary Filtration, Intermittent, Less than 6 Hours Per Day (ICD-10-PCS; principal; 2017-10-24)
PROC: 5A1D70Z Performance of Urinary Filtration, Intermittent, Less than 6 Hours Per Day (ICD-10-PCS; 2017-10-26)
DX: A41.9 Sepsis, unspecified organism (principal); N17.0 Acute kidney failure with tubular necrosis; I50.43 Acute on chronic combined systolic (congestive) and diastolic (congestive) heart failure; E43 Unspecified severe protein-calorie malnutrition; G93.40 Encephalopathy, unspecified; N18.6 End stage renal disease; I13.2 Hypertensive heart and chronic kidney disease with heart failure and with stage 5 chronic kidney disease, or end stage renal disease; E87.1 Hypo-osmolality and hyponatremia; G90.9 Disorder of the autonomic nervous system, unspecified; K21.9 Gastro-esophageal reflux disease without esophagitis; E03.9 Hypothyroidism, unspecified; E83.42 Hypomagnesemia; E78.5 Hyperlipidemia, unspecified; D63.8 Anemia in other chronic diseases classified elsewhere; E11.40 Type 2 diabetes mellitus with diabetic neuropathy, unspecified; N40.0 Benign prostatic hyperplasia without lower urinary tract symptoms; K59.00 Constipation, unspecified; G30.9 Alzheimer's disease, unspecified; F32.9 Major depressive disorder, single episode, unspecified; F02.80 Dementia in other diseases classified elsewhere, unspecified severity, without behavioral disturbance, psychotic disturbance, mood disturbance, and anxiety; E11.65 Type 2 diabetes mellitus with hyperglycemia; E11.22 Type 2 diabetes mellitus with diabetic chronic kidney disease; E11.51 Type 2 diabetes mellitus with diabetic peripheral angiopathy without gangrene; E83.39 Other disorders of phosphorus metabolism; E87.5 Hyperkalemia; I25.10 Atherosclerotic heart disease of native coronary artery without angina pectoris; Z82.49 Family history of ischemic heart disease and other diseases of the circulatory system; Z83.3 Family history of diabetes mellitus; Z95.1 Presence of aortocoronary bypass graft; Z99.2 Dependence on renal dialysis; Z89.512 Acquired absence of left leg below knee; Z89.511 Acquired absence of right leg below knee; Z79.82 Long term (current) use of aspirin; Z79.01 Long term (current) use of anticoagulants; Z79.899 Other long term (current) drug therapy; Z79.4 Long term (current) use of insulin; Z68.30 Body mass index [BMI] 30.0-30.9, adult; L08.9 Local infection of the skin and subcutaneous tissue, unspecified
CPT/HCPCS: 36415; 70450; 71045; 73130; 76770; 80048; 80053; 80202; 80305; 81001; 82009; 82140; 82150; 82550; 82948; 83036; 83605; 83690; 83735; 83880; 84100; 84436; 84439; 84443; 84479; 84484; 84550; 85025; 85610; 85730; 87040; 87070; 87075; 87081; 87086; 87186; 87205; 90935; 93005; 93880; 93925; 93970; 99285; C1758; G0482; J0696; J1644; J1815; J3370; J3490; J7030; J7060; Q0092